=== PATIENT | female | born 1970 | race Caucasian/White ===

== ENCOUNTER 2019-05-02 08:57 | Outpatient (CLI) | payer OTHER, SELFPAY ==
--- NOTE | 2019-05-02 11:00 | NEURO_ITS ---
Patient Number: [id number] Impression: # Insulin dependent diabetic complains of weakness of upper extremities. 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 # Superimposed right Carpal Tunnel Syndrome. # Abnormal needle/EMG exam compatible with neurogenic changes. Nerve Conduction Studies Anti Sensory Summary Table Stim Site NR Peak (ms) P-T Amp (?V) Site1 Site2 Delta-P (ms) Dist (cm) Usman (m/s) Left Median Anti Sensory (2-3nd Digit) NO RESPONSE Wrist NR Wrist 2-3nd Digit 14.0 Wrist NR Wrist 2-3nd Digit 14.0 Right Median Anti Sensory (2-3nd Digit) Wrist 4.8 27.3 Wrist 2-3nd Digit 4.8 14.0 29 Wrist 5.1 13.6 Wrist 2-3nd Digit 4.8 14.0 29 Left Radial Anti Sensory (Base 1st Digit) Wrist 2.8 29.9 Wrist Base 1st Digit 2.8 0.0 Right Radial Anti Sensory (Base 1st Digit) Wrist 2.6 20.7 Wrist Base 1st Digit 2.6 0.0 Left Ulnar Anti Sensory (5th Digit) Wrist 2.2 44.6 Wrist 5th Digit 2.2 14.0 64 Right Ulnar Anti Sensory (5th Digit) NO RESPONSE Wrist NR Wrist 5th Digit 14.0 Motor Summary Table Stim Site NR Onset (ms) O-P Amp (mV) Site1 Site2 Delta-0 (ms) Dist (cm) Usman (m/s) Left Median Motor (Abd Poll Brev) Wrist 5.6 0.9 Elbow Wrist 7.7 28.0 36 Elbow 13.3 0.8 Right Median Motor (Abd Poll Brev) Wrist 7.3 0.9 Elbow Wrist 7.6 27.0 36 Elbow 14.9 0.9 Left Ulnar Motor (Abd Dig Minimi) Wrist 3.8 1.4 A Elbow Wrist 9.5 29.0 31 A Elbow 13.3 0.6 Right Ulnar Motor (Abd Dig Minimi) Wrist 3.8 1.5 A Elbow Wrist 9.2 28.0 30 A Elbow 13.0 0.8 F Wave Studies NR F-Lat (ms) L-R F-Lat (ms) Left Median (Mrkrs) (Abd Poll Brev) 32.28 1.40 Right Median (Mrkrs) (Abd Poll Brev) 30.88 1.40 Left Ulnar (Mrkrs) (Abd Dig Min) 28.95 0.12 Right Ulnar (Mrkrs) (Abd Dig Min) 29.06 0.12 EMG Side Muscle Nerve Root Ins Act Fibs Amp Dur Recrt Comment Right 1stDorInt Ulnar C8-T1 Nml Nml Nml >12ms Reduced Right Ext Indicis Radial (Post Int) C7-8 Nml Nml Nml Nml Reduced Right Ext Digitorum Radial (Post Int) C7-8 Nml Nml Nml Nml Reduced Right BrachioRad Radial C5-6 Nml Nml Nml Nml Reduced Right PronatorTeres Median C6-7 Nml Nml Nml Nml Reduced Right Abd Poll Brev Median C8-T1 Nml Nml Nml >12ms Reduced Left 1stDorInt Ulnar C8-T1 Nml Nml Nml >12ms Reduced Left Ext Indicis Radial (Post Int) C7-8 Nml Nml Nml Nml Reduced Left Ext Digitorum Radial (Post Int) C7-8 Nml Nml Nml Nml Reduced Left BrachioRad Radial C5-6 Nml Nml Nml Nml Reduced Left PronatorTeres Median C6-7 Nml Nml Nml Nml Reduced Left Abd Poll Brev Median C8-T1 Nml Nml Nml >12ms Reduced Right ABD Dig Min Ulnar C8-T1 Nml Nml Nml >12ms Reduced Left ABD Dig Min Ulnar C8-T1 Nml Nml Nml >12ms Reduced MTDD
== END 2019-05-02 08:58 | disposition home or self-care (01) ==
PROVIDERS: PCP Family Medicine; Visit Provider Family Medicine
DX: G56.03 Carpal tunnel syndrome, bilateral upper limbs (principal)
CPT/HCPCS: 95886; 95911

== ENCOUNTER 2020-02-12 11:10 | Outpatient (NON) | payer OTHER, SELFPAY ==
[2020-02-13 12:24] LABS: SARS-CoV-2 RNA PCR Negative
== END 2020-02-12 11:11 ==
PROVIDERS: PCP Family Medicine; Visit Provider Family Medicine
DX: B34.9 Viral infection, unspecified (principal); Z20.828 Contact with and (suspected) exposure to other viral communicable diseases
CPT/HCPCS: 87635; C9803; U0003